=== PATIENT | male | born 1960 | race Caucasian/White ===

== ENCOUNTER → 2017-04-17 | Outpatient (CLI) | payer BC ==
--- NOTE | 2017-04-18 18:51 | US ---
History: Epigastric abdominal pain. Right upper quadrant ultrasound: The liver appears to be of normal size, shape and echogenicity without focal lesion. No intrahepatic ductal dilatation. The common duct is normal and measures 4 to 5 mm. The gallbladder is unremarkable. No stones, wall thickening or surrounding edema. Pancreas was obscured by overlying bowel gas. Abdominal aorta and IVC are grossly unremarkable. The right kidney measures 13.1 cm in length and has a 14 mm cyst in its mid lower aspect. No solid nodule. No echogenic region suggestive of stone or significant hydronephrosis. IMPRESSION: 14 mm simple cyst lower pole right kidney otherwise unremarkable right upper quadrant sonography. Electronically signed by: Tracy Morgan MD 04/18/2017 6:49 PM CDT Workstation: [id number]
== END | disposition home or self-care (01) ==
LOC: US 07:33
PROVIDERS: ATTEND Family Medicine
DX: R10.13 Epigastric pain (principal)

== ENCOUNTER → 2017-11-25 | Outpatient (CLI) | payer BC | LOC: GMAB 12:39 | PROVIDERS: ATTEND Family Medicine | DX: Z00.00 Encounter for general adult medical examination without abnormal findings (principal) ==